=== PATIENT | male | born 1975 | race Hispanic/Latino ===

== ENCOUNTER 2017-08-05 19:08 | Emergency (ER) | payer OTHER ==
[2017-08-05] MEDS ORDERED: PROMETHAZINE HCL 25 MG/ML 1ML AMPULE IM ONE (19:27)
[2017-08-05] MEDS ORDERED: HYOSCYAMINE SULFATE 0.125 MG TAB.SUBL SL ONE (19:34)
== END 2017-08-05 20:31 | disposition home or self-care (01) ==
LOC: EDH 19:08
DX: R11.2 Nausea with vomiting, unspecified (principal)
CPT/HCPCS: 96372; 99283; J2550

== ENCOUNTER 2022-01-01 21:33 | Emergency (ER) | payer OTHER ==
[~2022-01-01] VITALS: Ht 167.6 cm; Wt 74.8 kg
[2022-01-01 22:28] LABS: BASOPHILS % (AUTO) 0.4 % (0.0-5.0); EOSINOPHILS % (AUTO) 3.4 % (0.0-8.0); HEMATOCRIT 42.4 % (42-54); LYMPHOCYTES % (AUTO) 41.1 % (21.0-51.0); MEAN CORPUSCULAR HEMOGLOBIN 32.7 pg (27.0-33.0); MEAN CORPUSCULAR HGB CONC 35.1 g/dL (32.0-36.0); MEAN CORPUSCULAR VOLUME 93.2 fL (79-99); MONOCYTES % (AUTO) 9.8 % (3.0-13.0); NEUTROPHILS % (AUTO) 45.1 % (40.0-77.0); PLATELET COUNT (AUTO) 96 K/uL (130-400); RED BLOOD CELL COUNT(AUTO) 4.55 MIL/uL (4.50-6.20); RED CELL DISTRIBUTION WIDTH 13.2 % (11.0-15.5)
[2022-01-01 22:52] LABS: CARBON DIOXIDE 28 mmol/L (21-32); CHLORIDE 101 mmol/L (101-111); CREATININE 0.9 mg/dL (0.5-1.5); GLOMERULAR FILTR. RATE CALC 96 mL/min (>60); GLUCOSE,RANDOM 190 mg/dL (70-105); POTASSIUM 3.9 mmol/L (3.5-5.1); SODIUM SERUM 137 mmol/L (136-145); UREA NITROGEN, BLOOD 11 mg/dL (7-18)
[2022-01-01 22:57] LABS: ALANINE AMINOTRANSFERASE 99 U/L (12-78); ALBUMIN 3.7 g/dL (3.5-5.0); ASPARTATE AMINOTRANSFERASE 69 U/L (10-37); CRP QUANTITATIVE < 2.00 mg/L (0.00-9.0); TOTAL PROTEIN, SERUM 6.9 g/dL (6.0-8.3)
[2022-01-01] MEDS ORDERED: D-ME1POW16 PO (23:14)
[2022-01-01 23:30] VITALS: BP 118/68
== END 2022-01-01 23:19 | disposition home or self-care (01) ==
LOC: EDH 21:33
DX: U07.1 COVID-19 (principal); J06.9 Acute upper respiratory infection, unspecified; R73.9 Hyperglycemia, unspecified; Z90.49 Acquired absence of other specified parts of digestive tract; Z71.6 Tobacco abuse counseling
CPT/HCPCS: 99284; 71045; 87635; 84484; 80053; 85025; 87804 ×2; 86140; 36415; C9803

== ENCOUNTER 2022-11-26 13:31 | Emergency (ER) | payer OTHER ==
[~2022-11-26] VITALS: Ht 167.6 cm; Wt 93.0 kg
[~2022-11-26 13:31] MED LIST: D-ME1POW16 PO
[2022-11-26] MEDS ORDERED: ONDANSETRON 4MG INJ IVP ONE (15:00)
[2022-11-26] MEDS ORDERED: 0.9%NACL 1000ML 1,000 ML IV ONE (15:00)
[2022-11-26] MEDS ORDERED: KETOROLAC 30MG VIAL (30MG/ML) IVP ONE (15:00)
[2022-11-26 15:12] LABS: BASOPHILS % (AUTO) 0.3 % (0.0-5.0); EOSINOPHILS % (AUTO) 2.7 % (0.0-8.0); HEMATOCRIT 40.5 % (42-54); LYMPHOCYTES % (AUTO) 22.5 % (21.0-51.0); MEAN CORPUSCULAR HEMOGLOBIN 32.1 pg (27.0-33.0); MEAN CORPUSCULAR HGB CONC 33.8 g/dL (32.0-36.0); MEAN CORPUSCULAR VOLUME 94.8 fL (79-99); MONOCYTES % (AUTO) 11.7 % (3.0-13.0); NEUTROPHILS % (AUTO) 62.4 % (40.0-77.0); PLATELET COUNT (AUTO) 109 K/uL (130-400); RED BLOOD CELL COUNT(AUTO) 4.27 MIL/uL (4.50-6.20); RED CELL DISTRIBUTION WIDTH 13.3 % (11.0-15.5); WHITE BLOOD COUNT (AUTO) 7.1 K/uL (4.8-10.8)
[2022-11-26 15:22] LABS: CREATININE 1.2 mg/dL (0.5-1.5); POTASSIUM 4.1 mmol/L (3.5-5.1)
[2022-11-26 15:26] LABS: ALBUMIN 3.5 g/dL (3.5-5.0); TOTAL PROTEIN, SERUM 6.9 g/dL (6.0-8.3)
[2022-11-26 17:03] LABS: APPEARANCE,URINE CLEAR (CLEAR); BILIRUBIN,URINE NEGATIVE (NEGATIVE); COLOR,URINE YELLOW (YELLOW); GLUCOSE, URINE (UA) 200 mg/dL (NEGATIVE); KETONES,URINE 5 mg/dL (NEGATIVE); LEUKOCYTE ESTERASE ,URINE NEGATIVE Leu/uL (NEGATIVE); NITRATE,URINE NEGATIVE (NEGATIVE); OCCULT BLOOD,URINE LARGE (NEGATIVE); PROTEIN,URINE 30 mg/dL (NEGATIVE)
[2022-11-26 17:40] LABS: MUCUS,URINE MOD LPF (None Seen); RBC,URINE TNTC /HPF (0-1)
[2022-11-26] MEDS ORDERED: IBUP-2070 PO (18:22)
[2022-11-26] MEDS ORDERED: METF-444 PO (18:22)
[2022-11-26 18:56] VITALS: BP 117/68; PULSE 61; RESP 18; O2SAT 96
== END 2022-11-26 19:07 | disposition home or self-care (01) ==
LOC: EDH 13:31
DX: R31.29 Other microscopic hematuria (principal); R73.9 Hyperglycemia, unspecified; R11.0 Nausea; R10.9 Unspecified abdominal pain; M54.50 Low back pain, unspecified; M19.90 Unspecified osteoarthritis, unspecified site; Z90.89 Acquired absence of other organs
CPT/HCPCS: 99285; 74176; 96374; 96361; 96375; 80053; 85025; 81001; 36415; J7030; J2405; J1885

== ENCOUNTER 2023-12-19 23:16 | Emergency (ER) | payer SELFPAY ==
[~2023-12-19] VITALS: Ht 167.6 cm; Wt 90.7 kg
[~2023-12-19 23:16] MED LIST changes: +IBUP-2070 PO; +METF-444 PO
[2023-12-20] LABS: BASOPHILS # (AUTO) 0.04 K/uL (0.00-0.20); BASOPHILS % (AUTO) 0.4 % (0.0-5.0); EOSINOPHILS # (AUTO) 0.28 K/uL (0.00-0.70); HEMATOCRIT 44.9 % (42-54); IMMATURE GRANULOCYTE ABSOLUTE 0.05 K/uL (0-1); LYMPHOCYTES # (AUTO) 3.1 K/uL (1.0-4.8); LYMPHOCYTES % (AUTO) 33.1 % (21.0-51.0); MEAN CORPUSCULAR HEMOGLOBIN 31.3 pg (27.0-33.0); MEAN CORPUSCULAR HGB CONC 34.5 g/dL (32.0-36.0); MEAN CORPUSCULAR VOLUME 90.5 fL (79-99); MONOCYTES % (AUTO) 10.3 % (3.0-13.0); NEUTROPHILS % (AUTO) 52.7 % (40.0-77.0); PLATELET COUNT (AUTO) 134 K/uL (130-400); RED BLOOD CELL COUNT(AUTO) 4.96 MIL/uL (4.50-6.20); RED CELL DISTRIBUTION WIDTH 13.2 % (11.0-15.5); WHITE BLOOD COUNT (AUTO) 9.4 K/uL (4.8-10.8)
[2023-12-20 00:05] LABS: CREATININE 0.9 mg/dL (0.5-1.3); POTASSIUM 4.2 mmol/L (3.5-5.1)
[2023-12-20 00:45] LABS: B-TYPE NATRIURETIC PEPTIDE < 5 pg/mL (0-100)
[2023-12-20 01:12] LABS: ALBUMIN 3.7 g/dL (3.5-5.0); BILIRUBIN,DIRECT 0.1 mg/dL (0.0-0.3); BILIRUBIN,TOTAL 0.5 mg/dL (0.2-1.0); TOTAL PROTEIN, SERUM 6.9 g/dL (6.0-8.3)
[2023-12-20] MEDS: ONDANSETRON 4MG INJ IVP ONE (02:14)
[2023-12-20] MEDS: KETOROLAC 30MG VIAL (30MG/ML) IVP ONE (02:14)
[2023-12-20] MEDS: 0.9%NACL 1000ML 1,000 ML IV ONE (02:14)
[2023-12-20 02:22] VITALS: BP 119/65; PULSE 61; RESP 18; O2SAT 99
[2023-12-20] MEDS: ASPIRIN 325MG TAB PO ONE (02:27)
[2023-12-20] MEDS: NITROGLYCERIN 1GM OINT 1 INCH/1GM TD ONE (02:27)
[2023-12-20 02:39] LABS: APPEARANCE,URINE CLEAR (CLEAR); BILIRUBIN,URINE NEGATIVE (NEGATIVE); COLOR,URINE YELLOW (YELLOW); GLUCOSE, URINE (UA) 500 mg/dL (NEGATIVE); KETONES,URINE 5 mg/dL (NEGATIVE); LEUKOCYTE ESTERASE ,URINE NEGATIVE Leu/uL (NEGATIVE); NITRATE,URINE NEGATIVE (NEGATIVE); OCCULT BLOOD,URINE NEGATIVE (NEGATIVE); PROTEIN,URINE 10 mg/dL (NEGATIVE)
[2023-12-20 02:43] LABS: ADD UA MICROSCOPIC YES
[2023-12-20 02:44] LABS: MUCUS,URINE RARE LPF (None Seen); WBC,URINE 0-1 /HPF (0-1)
[2023-12-20 02:47] LABS: AMPHET/METH SCREEN,URINE NEGATIVE (NEGATIVE); BARBITURATE SCREEN, URINE NEGATIVE (NEGATIVE); BENZODIAZEPINES SCREEN,URINE NEGATIVE (NEGATIVE); CANNABINOID SCREEN,URINE POSITIVE (NEGATIVE); COCAINE SCREEN,URINE NEGATIVE (NEGATIVE); OPIATE SCREEN,URINE NEGATIVE (NEGATIVE); PHENCYCLIDINE SCREEN,URINE NEGATIVE (NEGATIVE)
== END 2023-12-20 03:08 | disposition home or self-care (01) ==
LOC: EDH 23:16
DX: R07.89 Other chest pain (principal); E87.1 Hypo-osmolality and hyponatremia; E87.8 Other disorders of electrolyte and fluid balance, not elsewhere classified; F41.9 Anxiety disorder, unspecified; Z79.899 Other long term (current) drug therapy; Z90.49 Acquired absence of other specified parts of digestive tract
CPT/HCPCS: 99285; 71045; 82550; 80076; 84484 ×2; 80048; 83880; 80305; 85025; 81001; 36415 ×2; 93005; 96374; 96361; 96375; J7030; J2405; J1885

== ENCOUNTER 2025-04-19 03:12 | Emergency (ER) | payer BC ==
[~2025-04-19] VITALS: Ht 167.6 cm; Wt 172.4 kg
[~2025-04-19 03:12] MED LIST changes: +AMOX1TAB16 PO; +IBUP-1492 PO; -IBUP-2070 PO; +IBUP-2077 PO
--- NOTE | 2025-04-19 03:34 | ERN ---
ED Note History of Present Illness Stated Complaint: FEVER X DAYS, COUGH AND COLDS, CONGESTION Chief Complaint: Congestion Time Seen by MD: 03:23 Dictation: Patient is a 49-year-old male with a past medical history who presented to the ER complaining of 3 days of cough, fever, chills, congestion, headache, diarrhea. Allergies: Coded Allergies: No Known Drug Allergies (Unverified Allergy, Unknown, 01/01/22) Home Meds Active Scripts Acetaminophen (Tylenol) 325 Mg Tablet, 1-2 TAB PO QIDP PRN for pain or fever for 7 Days, #30 TAB 0 Refills Prov:TANYA TENORIO MD 04/19/25 Prednisolone Sod Phosphate (Prednisolone Sod Phosphate) 15 Mg/5 Ml (5 Ml) Solution, 5 ML PO BID for 3 Days, #30 ML 0 Refills Prov:TANYA TENORIO MD 04/19/25 Guaifenesin/Codeine Phosphate (Guaifenesin AC Cough Syrup) 10 Mg-100 Mg/5 Ml Liquid, 10 ML PO Q4HPRN PRN for cough and congestion for 4 Days, #240 ML 0 Refills Prov:TANYA TENORIO MD 04/19/25 Amoxicillin/Potassium Clav (Amox Tr-K Clv 875-125 mg Tab) 875 Mg-125 Mg Tablet, 1 EACH PO BID for 10 Days, #20 TAB 0 Refills Prov:LORI CRAWFORDP 02/28/24 Ibuprofen (Ibuprofen 800 mg Tab) 800 Mg Tab, 800 MG PO Q8H PRN for fever or pain, #30 TAB 0 Refills Prov:LORI CRAWFORDP 02/28/24 Ibuprofen (Ibuprofen) 600 Mg Tablet, 600 MG PO Q6H PRN for PAIN, #20 TAB Prov:ARLET MURRAY MD 11/26/22 Metformin HCl (Metformin HCl) 500 Mg Tablet, 500 MG PO DAILY, #30 TAB Prov:ARLET MURRAY MD 11/26/22 D-Methorphan/PE/Acetaminophen (Theraflu Ms Severe Cold Pckt) 1 Each Powd.pack, 1 EACH PO QIDP, #20 PACK Prov:YARON JENKINS 01/01/22 Past Medical History Past Medical History: No Pertinent History Additional Past Medical Hx: NORMALLY FIT AND WELL Surgical History: Appendectomy Family History: Negative Social History: Smokers, Drugs Review of System Dictation NEGATIVE EXCEPT PER HPI Constitutional: He reports fever and chills Eyes: Negative for injury, pain,redness, and discharge ENT: Negative for injury,pain or swelling Cardiovascular: denies chest pain, palpitations, and edema Respiratory: Reports cough Abdomen/GI: Reports diarrhea Back: Negative for injury and pain : Negative for injury, bleeding and discharge MS/Extremity: Negative for injury and deformity Skin: Negative for rash, and discoloration Neuro: Negative for headache, weakness, numbness, tingling, and seizure Psych: Negative for suicide ideation, homicidal ideation, and hallucinations Initial Vital Sign VS Vital Signs Date Time Temp Pulse Resp B/P (MAP) Pulse Ox O2 Delivery O2 Flow Rate FiO2 04/19/25 03:24 97.7 89 20 139/106 98 Room Air 0 04/19/25 03:30 21 Physical Exam Dictation General: awake, alert, NAD Head/Face: Normocephalic, atraumatic Eyes: PERRL, EOMI, vision at baseline ENT: oral cavity clear, TMs clear, no signs of infection Neck: Trachea midline, supple, no nuchal rigidity Cardiovascular: RRR, normal S1/S2, No MRGs, no JVD Respiratory: Bilateral crackles no wheezing Abdomen: Soft , no tender Skin: Warm, dry, normal turgor, no rash MS/Extremity: Pulses equal, no cyanosis, neurovascular intact, FROM Neuro: COAx4, GCS 15, strength 5/5, CN 2-12 intact, normal cerebellar exam, normal gait, Psych: Normal behavior, mood, and affect normal Results (Laboratory/Radiology) Laboratory/Radiology Laboratory Tests Test 04/19/25 03:20 04/19/25 03:47 Urine Color YELLOW (YELLOW) Urine Appearance CLEAR (CLEAR) Urine pH 6.0 (5.0-8.0) Urine Specific [place] 1.032 (1.001-1.031) Urine Protein 30 mg/dL (NEGATIVE) H Urine Glucose (UA) TRACE mg/dL (NEGATIVE) H Urine Ketones 10 mg/dL (NEGATIVE) H Urine Occult Blood NEGATIVE (NEGATIVE) Urine Nitrate NEGATIVE (NEGATIVE) Urine Bilirubin NEGATIVE mg/dL (NEGATIVE) Urine Urobilinogen 4.0 mg/dL (0.2-1.0) H Urine Leukocyte Esterase NEGATIVE Yi/uL Urine RBC 2-5 /HPF (0-1) H Urine WBC 2-5 /HPF (0-1) H Urine Squamous Epithelial Cells FEW /HPF (0-2) Urine Bacteria None /HPF (None Seen) Influenza Type A Antigen Negative For Type A Influenza Type B Antigen Negative For Type B SARS-CoV-2, RNA, NAAT NEGATIVE SARS CoV-2 Group A Streptococcus Rapid negative (NEGATIVE) White Blood Count 4.1 K/uL (4.8-10.8) L Red Blood Count 5.28 MIL/uL (4.50-6.20) Hemoglobin 16.8 g/dL (14.0-18.0) Hematocrit 47.9 % (42-54) Mean Corpuscular Volume 90.7 fL (79-99) Mean Corpuscular Hemoglobin 31.8 pg (27.0-33.0) Mean Corpuscular Hemoglobin Concent 35.1 g/dL (32.0-36.0) Red Cell Distribution Width 13.2 % (11.0-15.5) Platelet Count 78 K/uL (130-400) L Mean Platelet Volume 12.8 fL (7.5-10.5) H Immature Granulocyte % (Auto) 0.7 % (0-1) Neutrophils (%) (Auto) 54.3 % (40.0-77.0) Lymphocytes (%) (Auto) 21.8 % (21.0-51.0) Monocytes (%) (Auto) 22.5 % (3.0-13.0) H Eosinophils (%) (Auto) 0.2 % (0.0-8.0) Basophils (%) (Auto) 0.5 % (0.0-5.0) Neutrophils # (Auto) 2.2 K/uL (1.8-7.7) Lymphocytes # (Auto) 0.9 K/uL (1.0-4.8) L Monocytes # (Auto) 0.9 K/uL (0.1-1.0) Eosinophils # (Auto) 0.01 K/uL (0.00-0.70) Basophils # (Auto) 0.02 K/uL (0.00-0.20) Absolute Immature Granulocyte (auto 0.03 K/uL (0-1) Nucleated Red Blood Cells 0.0 % (0.0-0.19) White Cell Morphology Comment See comments Sodium Level 132 mmol/L (136-145) L Potassium Level 4.0 mmol/L (3.5-5.1) Chloride Level 97 mmol/L (101-111) L Carbon Dioxide Level 25 mmol/L (21-32) Blood Urea Nitrogen 10 mg/dL (7-18) Creatinine 0.9 mg/dL (0.5-1.3) Glomerular Filtration Rate Calc 104 mL/min (>90) Random Glucose 159 mg/dL (70-105) H Total Calcium 8.8 mg/dL (8.5-10.1) ED Course ED Course Orders Procedure Category Date Status Time Covid Rna Naat LAB 04/19/25 Complete 03:22 Influenza Type A & B, LAB 04/19/25 Complete Rapid 03:22 Rapid (Group A Strep) LAB 04/19/25 Complete 03:22 Urinalysis Profile LAB 04/19/25 Complete 03:22 Cbc With Differential LAB 04/19/25 Complete 03:24 Basic Metabolic Panel LAB 04/19/25 Complete 03:24 12 Lead Ekg Tracing- EKG 04/19/25 Logged Technical 03:24 Chest 1vw RAD 04/19/25 Resulted 03:27 Ipratropium/Albuterol PHA 04/19/25 Complete Neb (Duoneb) 03:30 0.9%Nacl 1000ml (Ns PHA 04/19/25 Complete 1000ml) 03:30 Ipratropium/Albuterol PHA 04/19/25 Complete Neb (Duoneb) 03:34 Prednisolone 5mg/5ml PHA 04/19/25 Complete Soln (Pediapred 5 04:30 Guaifenesin Sug-Tony PHA 04/19/25 Complete 100 Mg/5ml (Robituss 04:30 Prednisolone 15mg/5ml PHA 04/19/25 Complete Soln (Orapred 15mg 04:30 0.9%Nacl 1000ml (Ns PHA 04/19/25 Complete 1000ml) 05:00 Ibuprofen 600 Mg PHA 04/19/25 Logged Tablet (Motrin) 05:30 Current Medications Medications (Trade) Dose Ordered Sig/Elaina Route PRN Reason Start Time Stop Time Status Last Admin Dose Admin Albuterol (DUOneb) 1 udvial ONCE ONCE IH 04/19/25 03:30 04/19/25 03:42 DC 04/19/25 04:00 Albuterol (DUOneb) 1 udvial STK-MED ONCE IH 04/19/25 03:34 04/19/25 03:35 DC Guaifenesin (RobiTUSSin SUGAR-FREE 100 MG/ 5 ML UDCUP) 200 mg ONCE ONCE PO 04/19/25 04:30 04/19/25 04:32 DC 04/19/25 04:35 Ibuprofen (moTRIN) 600 mg ONCE ONCE PO 04/19/25 05:30 04/19/25 05:31 UNV Prednisolone Sodium Phosphate (PEDIApred 5MG/ 5ML SOLN) 15 mg ONCE ONCE PO 04/19/25 04:30 04/19/25 04:22 DC Prednisolone Sodium Phosphate (oraPRED 15MG/ 5ML SOLN) 15 mg ONCE ONCE PO 04/19/25 04:30 04/19/25 04:32 DC 04/19/25 04:36 Sodium Chloride 1,000 ml @ 0 mls/hr ONCE ONCE IV 04/19/25 03:30 04/19/25 03:42 DC 04/19/25 03:48 Sodium Chloride 1,000 ml @ 0 mls/hr ONCE ONCE IV 04/19/25 05:00 04/19/25 05:01 DC 04/19/25 04:59 Vital Signs Date Time Temp Pulse Resp B/P (MAP) Pulse Ox O2 Delivery O2 Flow Rate FiO2 04/19/25 04:55 80 15 153/82 98 Room Air* 0 21 04/19/25 04:01 80 18 04/19/25 03:30 97.7 87 20 130/89 98 Room Air* 0 04/19/25 03:24 97.7 89 20 139/106 98 Room Air 0 Medical Decision Making MDM 49-year-old male who presented with a congestion, cough, fever, chills, diarrhea. Patient takes Tylenol 2 hours prior to presentation to the ER Respiratory infection Dehydration Possible pneumonia Laboratory workup ordered to rule out infection including CBC, BNP, COVID swab, strep, influenza. Chest x-ray DuoNeb IV fluids 1 L ordered EXAM: CR Chest, 1 View. CLINICAL HISTORY: congestion COMPARISON: None provided. FINDINGS: LUNGS: There is no mass, infiltrate, or acute pulmonary abnormality. PLEURAL SPACES: No pleural effusion or pneumothorax. MEDIASTINUM: The cardiomediastinal silhouette is within normal limits. BONES: No aggressively appearing osseous lesion was seen. IMPRESSION: No acute cardiopulmonary pathology is evident. DX & DISP Disposition: Discharge Departure Impression: Primary Impression: Respiratory infection Additional Impressions: Dehydration, Diarrhea, Cough, Congestion of upper airway Condition: Stable Scripts Ibuprofen (Motrin Ib) 200 Mg Tablet 2 TAB PO Q6HPRN PRN for FEVER for 3 Days, #18 TAB 0 Refills Prov: TANYA TENORIO MD 04/19/25 Acetaminophen (Tylenol) 325 Mg Tablet 1-2 TAB PO QIDP PRN for pain or fever for 7 Days, #30 TAB 0 Refills Prov: TANYA TENORIO MD 04/19/25 Prednisolone Sod Phosphate (Prednisolone Sod Phosphate) 15 Mg/5 Ml (5 Ml) Solution 5 ML PO BID for 3 Days, #30 ML 0 Refills Prov: TANYA TENORIO MD 04/19/25 Guaifenesin/Codeine Phosphate (Guaifenesin AC Cough Syrup) 10 Mg-100 Mg/5 Ml Liquid 10 ML PO Q4HPRN PRN for cough and congestion for 4 Days, #240 ML 0 Refills Prov: TANYA TENORIO MD 04/19/25 Additional Instructions: RETURN TO ER FOR ANY ACUTE OR WORSENING SYMPTOMS. FOLLOW-UP IN 1-2 DAYS WITH PRIMARY PROVIDER FOR RECHECK OF TODAY'S SYMPTOMS. Referrals: SELF,REFERRAL (PCP) TANYA TENORIO MD Apr 19, 2025 03:34
[2025-04-19 03:35] LABS: APPEARANCE,URINE CLEAR (CLEAR); GLUCOSE, URINE (UA) TRACE mg/dL (NEGATIVE); LEUKOCYTE ESTERASE ,URINE NEGATIVE Leu/uL (NEGATIVE); NITRATE,URINE NEGATIVE (NEGATIVE); OCCULT BLOOD,URINE NEGATIVE (NEGATIVE)
[2025-04-19 03:38] LABS: ADD UA MICROSCOPIC YES
[2025-04-19 03:39] LABS: SQUAMOUS EPITHELIAL CELL,UR FEW /HPF (0-2)
[2025-04-19 03:42] LABS: RAPID GROUP A STREP negative (NEGATIVE)
[2025-04-19 03:48] LABS: SARS-CoV-2, RNA, NAAT NEGATIVE SARS CoV-2 (NEGATIVE)
[2025-04-19] MEDS: 0.9%NACL 1000ML 1,000 ML IV ONE ×2 (03:48→04:59)
[2025-04-19 03:52] LABS: INFLUENZA TYPE A Negative For Type A (NEGATIVE); INFLUENZA TYPE B Negative For Type B (NEGATIVE)
[2025-04-19 03:52] LABS: IMMATURE GRANULOCYTE ABSOLUTE 0.03 K/uL (0-1); NUCLEATED RED BLOOD CELLS 0.0 % (0.0-0.19); PLATELET COUNT (AUTO) 78 K/uL (130-400); RED BLOOD CELL COUNT(AUTO) 5.28 MIL/uL (4.50-6.20); RED CELL DISTRIBUTION WIDTH 13.2 % (11.0-15.5); WHITE BLOOD COUNT (AUTO) 4.1 K/uL (4.8-10.8)
--- NOTE | 2025-04-19 03:56 | HMCIMG ---
EXAM: CR Chest, 1 View. CLINICAL HISTORY: congestion COMPARISON: None provided. FINDINGS: LUNGS: There is no mass, infiltrate, or acute pulmonary abnormality. PLEURAL SPACES: No pleural effusion or pneumothorax. MEDIASTINUM: The cardiomediastinal silhouette is within normal limits. BONES: No aggressively appearing osseous lesion was seen. IMPRESSION: No acute cardiopulmonary pathology is evident. /[place]
[2025-04-19 03:59] LABS: CREATININE 0.9 mg/dL (0.5-1.3); GLOMERULAR FILTR. RATE CALC 104.0 mL/min (>90); GLUCOSE,RANDOM 159.0 mg/dL (70-105); SODIUM SERUM 132.0 mmol/L (136-145); UREA NITROGEN, BLOOD 10.0 mg/dL (7-18)
[2025-04-19 04:01] VITALS: PULSE 80; RESP 18
[2025-04-19] MEDS ORDERED: prednisoLONE 5MG/5ML SOLN 5 MG/5 ML BOTTLE PO ONE (04:30)
[2025-04-19] MEDS ORDERED: GUAI-899 PO (05:00)
[2025-04-19] MEDS ORDERED: PRED15SO81 PO (05:00)
[2025-04-19] MEDS ORDERED: ACET-2247 PO (05:00)
[2025-04-19] MEDS ORDERED: IBUP-1673 PO (05:32)
[2025-04-19 05:38] VITALS: TEMP 99.7
[2025-04-19 05:43] VITALS: BP 121/75; PULSE 82; RESP 16; TEMP 99.7; O2SAT 98
--- NOTE | 2025-04-19 08:13 | EKG ---
[facility] Test Date: 2025-04-19 Test Time: 03:26:39 Pat Name: LISANDRA MARTINEZ Department: ED Room: Gender: M [employer] Specialist: [id number] : 1975 Requested By: TANYA BANUELOS Order Number: [id number] Reading MD: Domingo Glynn Measurements Intervals [place] Rate: 82 P: 59 CO: 106 QRS: 8 QRSD: 86 T: 36 QT: 357 QTc: 417 Interpretive Statements Sinus rhythm Compared to ECG 12/19/2023 23:18:42 ST (T wave) deviation no longer present Electronically Signed On 04-20-2025 08:23:45 FASHION EDITOR by Domigno Glynn Please click the below link to view image of tracing.
== END 2025-04-19 06:00 | disposition home or self-care (01) ==
LOC: EDH 03:12
DX: J98.8 Other specified respiratory disorders (principal); E86.0 Dehydration; R19.7 Diarrhea, unspecified; R05.9 Cough, unspecified; R09.89 Other specified symptoms and signs involving the circulatory and respiratory systems; F17.200 Nicotine dependence, unspecified, uncomplicated; Z79.84 Long term (current) use of oral hypoglycemic drugs; Z90.49 Acquired absence of other specified parts of digestive tract; Z20.822 Contact with and (suspected) exposure to COVID-19
CPT/HCPCS: 99284; 96360; 71045; 87635; 96361; 80048; 85025; 87880; 87804 ×2; 81001; 36415; 93005; 94640; J7030; J7510